=== PATIENT | female | born 1945 | race Caucasian/White ===

== ENCOUNTER 2019-09-22 09:37 | Inpatient (IN) ==
[2019-09-22] MEDS ORDERED: Ondansetron ODT 4 MG TAB.RAPDIS SL PRN ×2 (20:06→20:17)
[2019-09-22] MEDS ORDERED: Acetaminophen 325 MG TABLET PO PRN (20:14)
[2019-09-23 03:37] LABS: Bilirubin,Urine Negative (Negative); Blood,Urine Negative (Negative); Clarity,Urine Clear (Clear); Color,Urine Yellow (Yellow); Glucose,Urine (UA) Normal (Normal); Ketones,Urine Negative (Negative); Leukocyte Esterase,Urine Trace (Negative); Nitrite,Urine Negative (Negative); Protein,Urine Negative (Neg-Trace); Urobilinogen,Urine Normal (Normal)
[2019-09-23 04:28] LABS: Bacteria,Urine Few per hpf (None-Few); RBC,Urine 0-3 per hpf (0-3); Squamous Epithelial Cell,Urine Few per lpf (None-Few); Transitional Epi Cells,Urine Moderate per hpf (None-Few)
[2019-09-23 05:33] LABS: Basophils # 0.1 K/mcL (0.0-0.2); Basophils % 0.6 %; Eosinophils # 0.5 K/mcL (0.0-0.6); Eosinophils % 4.2 %; Hematocrit 32.1 % (35.3-44.9); Immature Granulocytes % 0.7 % (0-4); Lymphocytes # 2.8 K/mcL (0.6-4.6); Lymphocytes % 25.6 %; Mean Corpuscular HGB Conc 31.2 g/dL (31.6-35.5); Mean Corpuscular Hemoglobin 27.2 pg (28.0-33.3); Mean Corpuscular Volume 87.2 fL (83.0-100.0); Mean Platelet Volume 10.1 fL (9.4-12.4); Monocytes # 0.9 K/mcL (0.0-1.3); Monocytes % 8.7 %; Neutrophils # 6.5 K/mcL (1.6-8.9); Platelet Count 364 K/mcL (140-400); Red Blood Count 3.68 M/mcL (3.82-4.97); Red Cell Distribution Width 15.5 % (11.5-14.5); Segmented Neutrophils % 60.2 %; White Blood Count 10.8 K/mcL (4.3-11.1)
[2019-09-23 05:40] LABS: INR 3.7; Prothrombin Time 41.8 Seconds (9.4-12.1)
[2019-09-23] MEDS: Levothyroxine 25 MCG TABLET PO SCH (05:49)
[2019-09-23 05:50] LABS: BUN/Creatinine Ratio 16 (6-26); Blood Urea Nitrogen 10 mg/dL (8-23); Calcium 9.1 mg/dL (8.6-10.3); Carbon Dioxide 29 mEq/L (23-29); Chloride 100 mEq/L (98-107); Glucose 102 mg/dL (70-105); Osmolality,Calculated 281 (280-300); Potassium 4.1 mEq/L (3.5-5.1); Sodium 136 mEq/L (136-145); eGFR For African Americans > 60 (> 60); eGFR For Non-African Americans > 60 (> 60)
[2019-09-23] MEDS ORDERED: Levothyroxine 25 MCG TABLET PO SCH (06:30)
[2019-09-23] MEDS: Aspirin Enteric Coated 81 MG Tablet PO SCH (08:49)
[2019-09-23] MEDS: Metoprolol XL (24 HR) Succ 25 MG TAB.ER.24H PO SCH (08:49)
[2019-09-23] MEDS: Fluconazole 100 MG TABLET PO SCH (08:50)
[2019-09-23] MEDS ORDERED: Metoprolol XL (24 HR) Succ 25 MG TAB.ER.24H PO SCH (09:00)
[2019-09-23] MEDS ORDERED: Fluconazole 100 MG TABLET PO SCH (09:00)
[2019-09-23] MEDS ORDERED: Aspirin Enteric Coated 81 MG Tablet PO SCH (09:00)
[2019-09-23] MEDS ORDERED: Warfarin perPT PO SCH (18:00)
[2019-09-23] MEDS ORDERED: *HR* Warfarin 1 MG TABLET PO ONE (18:00)
[2019-09-23] MEDS ORDERED: Warfarin perPT PO PRN (18:00)
[2019-09-23] MEDS: Melatonin 3 MG TABLET PO SCH (22:36)
[2019-09-24] MEDS: Levothyroxine 25 MCG TABLET PO SCH (05:07)
[2019-09-24 05:34] LABS: Basophils # 0.1 K/mcL (0.0-0.2); Basophils % 0.6 %; Eosinophils # 0.6 K/mcL (0.0-0.6); Eosinophils % 5.6 %; Hematocrit 31.5 % (35.3-44.9); Hemoglobin 9.8 g/dL (11.5-15.4); Immature Granulocytes % 0.5 % (0-4); Lymphocytes # 2.3 K/mcL (0.6-4.6); Lymphocytes % 22.3 %; Mean Corpuscular HGB Conc 31.1 g/dL (31.6-35.5); Mean Corpuscular Volume 86.8 fL (83.0-100.0); Mean Platelet Volume 10.5 fL (9.4-12.4); Monocytes # 0.9 K/mcL (0.0-1.3); Monocytes % 8.8 %; Neutrophils # 6.5 K/mcL (1.6-8.9); Platelet Count 360 K/mcL (140-400); Red Blood Count 3.63 M/mcL (3.82-4.97); Red Cell Distribution Width 15.7 % (11.5-14.5); Segmented Neutrophils % 62.2 %; White Blood Count 10.5 K/mcL (4.3-11.1)
[2019-09-24 05:39] LABS: INR 3.5; Prothrombin Time 39.6 Seconds (9.4-12.1)
[2019-09-24 05:51] LABS: BUN/Creatinine Ratio 17 (6-26); Blood Urea Nitrogen 11 mg/dL (8-23); Calcium 9.1 mg/dL (8.6-10.3); Carbon Dioxide 29 mEq/L (23-29); Chloride 102 mEq/L (98-107); Glucose 106 mg/dL (70-105); Osmolality,Calculated 286 (280-300); Potassium 4.4 mEq/L (3.5-5.1); Sodium 138 mEq/L (136-145); eGFR For African Americans > 60 (> 60); eGFR For Non-African Americans > 60 (> 60)
[2019-09-24] MEDS: Fluconazole 100 MG TABLET PO SCH (09:09)
[2019-09-24] MEDS: Metoprolol XL (24 HR) Succ 25 MG TAB.ER.24H PO SCH (09:09)
[2019-09-24] MEDS: Aspirin Enteric Coated 81 MG Tablet PO SCH (09:09)
[2019-09-24] MEDS: Ibuprofen 600 MG TABLET PO PRN (11:26)
[2019-09-24] MEDS: Melatonin 3 MG TABLET PO SCH (20:27)
[2019-09-25] MEDS: Levothyroxine 25 MCG TABLET PO SCH (06:00)
[2019-09-25] MEDS: Ibuprofen 600 MG TABLET PO PRN (06:02)
[2019-09-25 07:30] VITALS: BP 102/65
[2019-09-25 07:36] LABS: INR 3.2; Prothrombin Time 36.1 Seconds (9.4-12.1)
[2019-09-25] MEDS: Metoprolol XL (24 HR) Succ 25 MG TAB.ER.24H PO SCH (08:02)
[2019-09-25] MEDS: Aspirin Enteric Coated 81 MG Tablet PO SCH (08:02)
[2019-09-25] MEDS: Fluconazole 100 MG TABLET PO SCH (08:03)
[2019-09-25] MEDS ORDERED: *HR* Warfarin 1 MG TABLET PO ONE (18:00)
== END 2019-09-25 17:29 | disposition home health service (06) | DRG 949 ==
LOC: INPGRE 18:24
PROVIDERS: ADMIT Family Medicine; ATTEND Family Medicine